=== PATIENT | female | born 1955 | race Caucasian/White ===

== ENCOUNTER 2017-01-19 18:40 | Emergency (ER) | payer BC ==
--- NOTE | 2017-01-19 20:21 | ER Document Report ---
ED Medical Screen (RME) - General Chief Complaint: Chest Pain Stated Complaint: CHEST PAIN Time Seen by Provider: 01/19/17 20:15 Notes: This 61-year-old female reports an episode on Tuesday of sternal chest pressure lasting about 15 minutes. It recurred today this afternoon and lasted about 4 hours. It is gone now. She reports the pain as a squeezing pain like something was sitting on it. She did feel short of breath. She also felt like both arms were very heavy and weak and had difficulty lifting them up to put her hand on her sternal area. She does have a brother who is a non-smoker and had a coronary artery stent at the age of 56. I have greeted and performed a rapid initial assessment of this patient. A comprehensive ED assessment and evaluation of the patient, analysis of test results and completion of the medical decision making process will be conducted by additional ED providers. TRAVEL OUTSIDE OF THE [place] IN LAST 30 DAYS: No - Related Data Allergies/Adverse Reactions: No Known Allergies Allergy (Unverified 01/19/17 20:12) Past Medical History - Social History Frequency of alcohol use: None Drug Abuse: None Renal/ Medical History: Denies: Hx Peritoneal Dialysis Physical Exam - Vital signs Vitals: Temp Pulse Resp BP Pulse Ox 98.4 F 60 16 155/93 H 99 01/19/17 19:01/19/17 19:01/19/17 19:01/19/17 19:01/19/17 19:09 Course - Vital Signs Vital signs: Temp Pulse Resp BP Pulse Ox 98.4 F 60 16 155/93 H 99 01/19/17 19:01/19/17 19:01/19/17 19:01/19/17 19:01/19/17 19:09
[2017-01-19 21:08] LABS: ABSOLUTE EOSINOPHILS # (AUTO) 0.1 10^3/uL (0.0-0.6); ABSOLUTE LYMPHOCYTES (AUTO) 1.5 10^3/uL (0.5-4.7); ABSOLUTE MONOCYTES (AUTO) 0.5 10^3/uL (0.1-1.4); ABSOLUTE NEUT (AUTO) 10.4 10^3/uL (1.7-8.2); BASOPHILS % (AUTO) 0.2 % (0-2); EOSINOPHILS % (AUTO) 1.1 % (0-6); HEMATOCRIT 44.4 % (36.0-47.0); HEMOGLOBIN 15.3 g/dL (12.0-15.5); HGB HCT DIFFERENCE 1.5; LYMPHOCYTES % (AUTO) 12.1 % (13-45); MEAN CORPUSCULAR HEMOGLOBIN 33.2 pg (27.0-33.4); MEAN CORPUSCULAR HGB CONC 34.5 g/dL (32.0-36.0); MEAN CORPUSCULAR VOLUME 96 fl (80-97); MONOCYTES % (AUTO) 4.4 % (3-13); RED BLOOD COUNT 4.62 10^6/uL (3.72-5.28); RED CELL DISTRIBUTION WIDTH 12.8 % (11.5-14.0); SEGMENTED NEUTROPHILS % (AUTO) 82.2 % (42-78); WHITE BLOOD COUNT 12.6 10^3/uL (4.0-10.5)
--- NOTE | 2017-01-19 21:09 | RADIOLOGY REPORT (SQ) ---
EXAM DESCRIPTION: CHEST PA/LAT COMPLETED DATE/TIME: 01/19/2017 8:54 pm REASON FOR STUDY: chest pain COMPARISON: None. EXAM PARAMETERS: NUMBER OF VIEWS: two views TECHNIQUE: Digital Frontal and Lateral radiographic views of the chest acquired. RADIATION DOSE: NA LIMITATIONS: none FINDINGS: LUNGS AND PLEURA: No opacities, masses or pneumothorax. No pleural effusion. MEDIASTINUM AND HILAR STRUCTURES: No masses or contour abnormalities. HEART AND VASCULAR STRUCTURES: Heart normal size. No evidence for failure. BONES: No acute findings. HARDWARE: None in the chest. OTHER: There is mild colonic distention. IMPRESSION: NO SIGNIFICANT RADIOGRAPHIC FINDING IN THE CHEST. TECHNICAL DOCUMENTATION: JOB ID: [id number] [employer]- All Rights Reserved
[2017-01-19 21:28] LABS: APPEARANCE,URINE CLEAR; BILIRUBIN,URINE NEGATIVE (NEGATIVE); GLUCOSE, URINE NEGATIVE (NEGATIVE); KETONES,URINE NEGATIVE (NEGATIVE); LEUKOCYTE ESTERASE,URINE NEGATIVE (NEGATIVE); NITRITE,URINE NEGATIVE (NEGATIVE); PROTEIN,URINE NEGATIVE (NEGATIVE); URINE SPECIFIC GRAVITY 1.023; UROBILINOGEN,URINE NEGATIVE mg/dL (<2.0)
[2017-01-19 21:33] LABS: ALANINE AMINOTRANSFERASE 29 U/L (9-52); ALBUMIN 4.2 g/dL (3.5-5.0); ALKALINE PHOSPHATASE 114 U/L (38-126); ANION GAP 11 (5-19); ASPARTATE AMINO TRANSFERASE 39 U/L (14-36); BILIRUBIN,DIRECT 0.3 mg/dL (0.0-0.4); BILIRUBIN,TOTAL 0.4 mg/dL (0.2-1.3); BLOOD UREA NITROGEN 22 mg/dL (7-20); CALCIUM 9.6 mg/dL (8.4-10.2); CARBON DIOXIDE 27 mmol/L (22-30); CHLORIDE 105 mmol/L (98-107); CREATINE KINASE 384 U/L (30-135); CREATININE RESULT 1.27 mg/dL (0.52-1.25); GLUCOSE 103 mg/dL (75-110); POTASSIUM 4.7 mmol/L (3.6-5.0); SODIUM 142.8 mmol/L (137-145); TOTAL PROTEIN 7.2 g/dL (6.3-8.2)
[2017-01-19] MEDS ORDERED: NITROGLYCERIN 2% OINTMENT 1 GM PACKET TP ONE (22:09)
[2017-01-19] MEDS ORDERED: ASPIRIN 325 MG TABLET PO ONE (22:09)
[2017-01-19] MEDS ORDERED: NITROGLYCERIN 0.4 MG/TAB 25 TAB/BOTTLE SL ONE (22:11)
--- NOTE | 2017-01-19 22:14 | ER Document Report ---
ED General - General Chief Complaint: Chest Pain Stated Complaint: CHEST PAIN Time Seen by Provider: 01/19/17 20:15 Notes: Should not is a 61-year-old female who presents with complaint of chest pain. She has one episode of chest pain on Tuesday last 15 minutes. It went away and she is feeling fine. Today she started having chest pain around 2 PM. Substernal nonradiating. No shortness of breath or diaphoresis associated with the. Chest pain would not go away and therefore she came to the ER. No fevers. No vomiting. No other complaints at this time. She takes no medications and is otherwise healthy other than a chronic hearing deficit. She does have a family history of coronary disease. Her brother had an SD at a similar age. Denies any recent bleeding. TRAVEL OUTSIDE OF THE [place] IN LAST 30 DAYS: No - Related Data Allergies/Adverse Reactions: No Known Allergies Allergy (Unverified 01/19/17 20:12) Past Medical History - Social History Smoking Status: Never Smoker Frequency of alcohol use: None Drug Abuse: None Family History: CAD Patient has suicidal ideation: No Patient has homicidal ideation: No Renal/ Medical History: Denies: Hx Peritoneal Dialysis Review of Systems - Review of Systems Notes: My Normal Review Basic REVIEW OF SYSTEMS: CONSTITUTIONAL : Denies fever, chills, or sweats. Denies recent illness. EENT: Denies eye, ear, throat, or mouth pain or symptoms. Denies nasal or sinus congestion. CARDIOVASCULAR: Has chest pain RESPIRATORY: Denies cough, cold, or chest congestion. Denies shortness of breath, difficulty breathing, or wheezing. GASTROINTESTINAL: Denies abdominal pain. Denies nausea, vomiting, or diarrhea. MUSCULOSKELETAL: Denies neck or back pain or joint pain or swelling. SKIN: Denies rash or skin lesions. NEUROLOGICAL: Denies altered mental status or loss of consciousness. Denies headache. Denies weakness or paralysis or loss of use of either side. Denies problems with gait or speech. Denies sensory or motor loss. ALL OTHER SYSTEMS REVIEWED AND NEGATIVE. Physical Exam - Vital signs Vitals: Temp Pulse Resp BP Pulse Ox 98.4 F 60 16 155/93 H 99 01/19/17 19:09 01/19/17 19:01/19/17 19:01/19/17 19:01/19/17 19:09 - Notes Notes: General Appearance: Well nourished, alert, cooperative, no acute distress, no obvious discomfort. Well appearing. Vitals: reviewed, See vital signs table. Head: no swelling or tenderness to the head Eyes: PERRL, EOMI, Conjuctiva clear Mouth: No decreasd moisture Neck: Supple, no neck tenderness, No thyromegaly Lungs: No wheezing, No rales, No rhonci, No accessory muscle use, good air exchange bilaterally. Heart: Normal rate, Regular rythm, No murmur, split S2 Abdomen: Normal BS, soft, No rigidity, No abdominal tenderness, No guarding, no rebound, no abdominal masses, no organomegaly Extremities: strength 5/5 in all extremities, good pulses in all extremities, no swelling or tenderness in the extremities, no edema. Skin: warm, dry, appropriate color, no rash Neuro: speech clear, oriented x 3, normal affect, responds appropriately to questions. Course - Re-evaluation Re-evalutation: 01/19/17 22:12 Patient is brought back from the waiting room because her triage troponin is positive. Still having some pain, but says is not as severe. clinically looks well. Will start patient on Lovenox. Give aspirin. Give SL nitro followed by nitro paste. Will talk to [facility] about possible transfer. 01/19/17 22:27 I have spoken with [facility], Dr. Heredia, who agrees to accept the patient. 01/19/17 22:27 01/19/17 22:42 01/19/17 23:25 Patient's chest pain is relieved with the nitro. 01/20/17 01:05 Patient's called me back. He is very upset because he does not understand why the patient will not be seen by upper cutter out immediately when she gets there and have a heart catheterization performed immediately. I try to explain to him the difference between a non-STEMI and a STEMI. I try to explain to him why they are managed differently. I explained to him also that [facility], does not have any bed available to the at this time so therefore her care would be delayed even longer. She is on a waiting list for there; however, her care and potential heart cath would be much longer delayed. My coworking ER physician also just called [facility] about transferring a chest pain patient there. They have a 17 person transfer waitlist at this time and therefore the patient would be very delayed in getting care at that hospital as well. He then told me that he had just talked to his who told him that "she felt as if she was dying from a chest pain". I told him that I did not understand this as I just spoke with her approximately an hour before and she continues that her chest pain was relieved with the nitro. He demanded that I make the upper cutter out be at the receiving hospital when the patient gets there. I informed him that I cannot make anybody do such a thing when it is not the standard of care for her underlying condition. Currently she has no chest pain, she has had no EKG changes, her vitals are stable. He requested I call the upper cutter out and have the upper cutter out call him. I informed him I will speak with the upper cutter out and see if he be willing to call him. I did go and speak with the patient. Patient says that she does not have any chest pain she feels well. I did explain the situation with her . I asked her if it is okay if we still arrange for transport being that we do have a bed assignment at [facility]. She says that she feels fine and she thinks it is okay to arrange for transport. She said that she would talk to the on the phone will correct before I called the upper cutter out. She said I can wait to call the upper cutter out until she speaks with her on the phone. I did explain to the patient herself the difference in why she most likely would not be cathed emergently and immediately when she arrived to the receiving hospital unless she was having continuous chest pain or EKG changes. Patient understands this. 01/20/17 01:07 01/20/17 01:27 The patient did speak with her . She says she is agreeable to transfer. She says I do not have to call over to [place] to speak with the upper cutter out. She said she is very comfortable with the plan of being evaluated by the hospitalist first before cardiology is consulted. Transport will be her 4:30 AM to transfer. She continues to have no chest pain. She is doing well. I informed her that if she has any chest pain or feels unwell that she should let us know immediately. Patient agrees. 01/20/17 03:09 I have rechecked the patient again. She continues to be completely pain-free and feel well and have no concerns. Earlier patient did have a slight headache. She did request to take 1 of her Tylenol. I informed her this was fine. 01/20/17 03:42 Transport team is here to transfer the patient to [facility]. Patient continues to say she does not have chest pain and feels well. She will complains of just a mild headache began after Nitropaste was applied. Patient is medically stable for transfer. 01/20/17 03:43 - Vital Signs Vital signs: Temp Pulse Resp BP Pulse Ox 98.4 F 60 16 130/88 H 94 01/19/17 19:09 01/19/17 19:09 01/20/17 03:31 01/20/17 03:31 01/20/17 03:31 - Laboratory Result Diagrams: 01/19/17 20:47 01/19/17 20:47 Laboratory results interpreted by me: 01/19/17 01/19/17 01/19/17 20:47 20:47 20:47 WBC 12.6 H Seg Neutrophils % 82.2 H Lymphocytes % 12.1 L Absolute Neutrophils 10.4 H BUN 22 H Creatinine 1.27 H Est GFR ( Amer) 52 L Est GFR (Non-Af Amer) 43 L AST 39 H Creatine Kinase 384 H Urine Ascorbic Acid 40 H - EKG Interpretation by Me Additional EKG results interpreted by me: 01/19/17 22:42 EKG #1 is reviewed and interpreted by me. EKG shows normal sinus rhythm with a rate of [address] segment elevation or depression. No ischemic T-wave inversions. DC interval, QRS duration, QTc intervals are within normal range. No old EKG available for comparison. EKG #2 is reviewed and interpreted by me. EKG shows sinus rhythm with a rate of [address] segment elevation or depression. No ischemic T-wave inversions. DC interval, QRS duration, QTc intervals are within normal range. 01/20/17 03:43 Discharge - Discharge Clinical Impression: Chest pain Disposition: [facility] Referrals: DANIAL MARVIN MD [Primary Care Provider] - Follow up as needed
[2017-01-19] MEDS ORDERED: ENOXAPARIN SODIUM INJ 80 MG/0.8 ML DISP.SYRIN SUBCUT SCH (22:15)
[2017-01-20 03:35] VITALS: BP 130/88
--- NOTE | 2017-01-20 13:07 | EKG REPORT ---
SEVERITY:- NORMAL ECG - SINUS RHYTHM : Confirmed by: Caesar Ackerman 20-Jan-2017 13:07:13
--- NOTE | 2017-01-20 13:08 | EKG REPORT ---
SEVERITY:- NORMAL ECG - SINUS RHYTHM : Confirmed by: Caesar Ackerman 20-Jan-2017 13:07:30
== END 2017-01-20 03:54 | disposition short-term general hospital (02) ==
LOC: ER 18:40
DX: R07.89 Other chest pain (principal); Z82.49 Family history of ischemic heart disease and other diseases of the circulatory system; R74.8 Abnormal levels of other serum enzymes; R51 Headache
CPT/HCPCS: 36415; 71020; 80053; 81001; 82550; 84484; 85025; 93005; 93010; 99285